=== PATIENT | female | born 2005 | race African-American/Black ===

== ENCOUNTER 2025-02-22 12:21 | Outpatient (CLI) | payer OTHER, SELFPAY ==
[2025-02-22 12:55] LABS: Iron 53 ug/dL (37-170)
[2025-02-22 13:04] LABS: Percent Iron Saturation 12 % (20-50)
[2025-02-22 14:06] LABS: Vitamin D 25 Hydroxy 30.1 ng/mL
== END 2025-02-22 12:22 | disposition home or self-care (01) ==
PROVIDERS: PCP Family Medicine; Visit Provider Family Medicine
DX: Z00.00 Encounter for general adult medical examination without abnormal findings (principal); E66.3 Overweight; G47.00 Insomnia, unspecified
CPT/HCPCS: 36415; 82306; 82607; 83540; 83550

== ENCOUNTER 2025-03-29 15:25 | Outpatient (CLI) | payer OTHER, SELFPAY ==
--- NOTE | ~2025-03-29 | XR_ITS ---
AP and oblique views of the SI joints CLINICAL HISTORY: Arthropathic psoriasis FINDINGS: No fracture or dislocation seen. SI joints and hip joints are intact. No degenerative partida e, erosive change, or sclerosis seen. Soft tissues are unremarkable. IMPRESSION: Unremarkable exam. Reviewed, dictated and finalized at location . IMPRESSION: Unremarkable exam.
--- NOTE | ~2025-03-29 | XR_ITS ---
Cervical Spine: AP, lateral, open-mouth views Clinical History: Arthropathic psoriasis Findings: There is reversal of the normal cervical lordosis. The vertebral bodies and posterior [place] ents appear intact. The intervertebral disc spaces are well maintained. Pre-vertebral soft tissues a re unremarkable. Impression: Reversal of the normal cervical lordosis, otherwise unremarkable exam. Reviewed, dictated and finalized at location . Impression: Reversal of the normal cervical lordosis, otherwise unremarkable exam.
--- NOTE | ~2025-03-29 | XR_ITS ---
HISTORY: Arthropathic psoriasis unspecified COMPARISON: None. TECHNIQUE: 4 view lumbar spine. FINDINGS: Lumbar vertebral bodies are normally aligned. There are 5 non-rib bearing lumbar vertebral bodies. Disc spaces and vertebral body heights are well maintained. Facet arthropathy is noted. There are no discrete lytic or sclerotic lesions. Paraspinal soft tissues are unremarkable. Oblique views demonstrate no fracture. 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 No additional abnormality is appreciated. Reviewed, dictated and finalized at location A.
[2025-03-29 16:33] LABS: Eosinophils Percent Auto 0.7 % (0-4.4); Hematocrit 36.7 % (37.0-47.0); Hemoglobin 10.9 g/dL (12.0-15.0); Immature Granulocyte Absolute 0.01 K/mm3 (0.00-0.031); Immature Granulocyte Percent A 0.2 % (0-0.5); Lymphocytes Absolute Auto 1.44 K/mm3 (0.9-3.2); Lymphocytes Percent Auto 34.3 % (18.3-44.2); Mean Corpuscular HGB Conc 29.7 g/dl (32-36); Mean Corpuscular Hemoglobin 22.9 pg (26-34); Mean Corpuscular Volume 76.9 fl (80-100); Mean Platelet Volume 9.2 fl (7.4-10.4); Monocytes Absolute Auto 0.2 K/mm3 (0.1-0.6); Monocytes Percent Auto 5.2 % (2.6-8.5); Neutrophils Absolute Auto 2.5 K/mm3 (1.3-6.7); Neutrophils Percent Auto 58.6 % (45.5-73.1); Platelet Count Result 339 k/mm3 (150-375); Red Blood Count 4.77 M/mm3 (4.2-5.4); Red Cell Distribution Width 18.2 % (11.5-14.5); White Blood Count 4.2 K/mm3 (4.5-10.0)
[2025-03-29 16:48] LABS: Rheumatoid Factor < 12.0 IU/ML (<12)
[2025-03-29 16:49] LABS: Albumin Level 4.5 g/dL (3.5-5.1); Anion Gap 12 mmol/L (4-12); Blood Urea Nitrogen 7 mg/dL (7-17); CRP < 0.5 mg/dL (<1.0); Calcium 9.3 mg/dL (8.4-10.2); Carbon Dioxide 20 mmol/L (22-30); Chloride 106 mmol/L (98-107); Estimated Glomerular Filt Rate > 60; Glucose 88 mg/dL (65-110); Phosphorus 3.5 mg/dL (2.5-4.5); Potassium 3.9 mmol/L (3.4-5.0); Sodium 138 mmol/L (137-145); Uric Acid 3.5 mg/dL (2.5-7.5)
[2025-03-29 16:55] LABS: Add Urine Microscopic? YES; Appearance Urine Clear (Clear); Bacteria Urine None Seen /hpf; Bilirubin Urine Negative (Negative); Blood Urine Negative (Negative); Color Urine Dark Yellow (Yellow); Glucose Urine UA Negative (Negative); Ketones Urine Trace mg/dL (Negative); Leukocyte Esterase Ur Negative LEU/UL (Negative); Need Manual Microscopic Reviewed; Nitrate Urine Negative (Negative); Protein Urine Trace mg/dL (Negative); RBC Urine 0-2 /hpf (0-2); Specific Grav Ur 1.032 (1.001-1.035); Squamous Epithelial Cell Urine Moderate /hpf (Few); WBC Urine 0-5 /hpf (0-3); pH Urine 5.5 (5.0-9.0)
[2025-03-29 17:03] LABS: Platelet Estimate Adequate (Adequate); Schistocytes None Seen
[2025-03-29 17:04] LABS: Erythrocyte Sedimentation Rate 18 mm/hr (0-20)
[2025-03-29 17:05] LABS: Anisocytosis 2+; Hypochromasia 1+
[2025-03-29 17:07] LABS: Band Neutrophils Percent 0 % (0-6)
[2025-03-29 17:10] LABS: Hepatitis B Surface Antigen Negative (Negative)
[2025-03-29 17:15] LABS: HAV RESULT Negative (Negative); Hepatitis B Core IgM Result Negative (Negative)
[2025-03-29 17:18] LABS: Thyroid Stimulating Hormone 0.987 uIU/mL (0.465-4.680)
[2025-03-29 17:27] LABS: Hepatitis C Virus Antibody Negative (Negative)
[2025-03-30 17:08] LABS: HLA B27 NEGATIVE (NEGATIVE)
[2025-03-31 16:43] LABS: Cyclic Citrullinated Peptide <16 UNITS
[2025-03-31 17:38] LABS: NIL 0.01 IU/mL; Quantiferon TB Plus, 1T NEGATIVE (NEGATIVE)
== END 2025-03-29 15:26 | disposition home or self-care (01) ==
PROVIDERS: PCP Family Medicine; Visit Provider Internal Medicine
DX: L40.50 Arthropathic psoriasis, unspecified (principal); M47.896 Other spondylosis, lumbar region; M43.8X2 Other specified deforming dorsopathies, cervical region
CPT/HCPCS: 36415; 72050; 72110; 72202; 80069; 80074; 81001; 84443; 84550; 85025; 85652; 86038; 86039; 86140; 86200; 86430; 86480; 86812

== ENCOUNTER 2025-06-24 09:42 | Outpatient (CLI) | payer OTHER, SELFPAY ==
[2025-06-24 10:16] LABS: Immature Reticulocyte Fraction 17.6 % (3.0-15.9); Reticulocyte Hemoglobin Conten 26.2 pg (28.2-36.6); Reticulocytes Absolute 0.05 10^6/uL (0.02-0.10)
[2025-06-24 10:40] LABS: Add Urine Microscopic? YES; Appearance Urine Cloudy (Clear); Glucose Urine UA Negative (Negative); Leukocyte Esterase Ur 1+ LEU/UL (Negative); Need Manual Microscopic Reviewed; Nitrate Urine Negative (Negative); Non Pathogenic Casts 0-2; Specific Grav Ur 1.026 (1.001-1.035)
[2025-06-24 11:05] LABS: Ferritin 5.33 ng/mL (6.24-137)
[2025-06-25 15:09] LABS: Folate, Hemolysate 265.0 ng/mL (Not Estab.); Folate, RBC 687 ng/mL (>498); Hematocrit 38.6 % (34.0-46.6)
== END 2025-06-24 09:43 | disposition home or self-care (01) ==
LOC: ANHLAB 09:43
PROVIDERS: PCP Family Medicine; Visit Provider Family Medicine
DX: D64.9 Anemia, unspecified (principal)
CPT/HCPCS: 36415; 81001; 82728; 82747; 85046